=== PATIENT | male | born 1985 | race Caucasian/White ===

== ENCOUNTER 2017-08-17 21:23 | Emergency (ER) | payer BC ==
--- NOTE | 2017-08-17 21:52 | ED Physician Chart ---
ED Chief Complaint/HPI - Patient Information Date Seen:: 08/17/17 Time Seen:: 21:48 Chief Complaint:: Left chest rib pain History of Present Illness:: 32 yo male left chest rib pain for 2 days. Nausea and vomited once today. Deep breath worsened the pain, movement of chest worsened the pain to 10/10. No SOB Allergies:: Allergies Allergy/AdvReac Type Severity Reaction Status Date / Time No Known Allergies Allergy Verified 08/17/17 21:35 Vitals:: Vital Signs - 8 hr 08/17/17 21:29 Temp 98.0 F HR 70 RR 18 BP 126/80 O2 Sat % 98 ED Review of Systems - Review of Systems General/Constitutional: No fever Head: No headache ED Past Medical History - Past Medical History Past Medical History: No significant medical hx Social History: Smoker, No Alcohol, No Drug Use Surgical History: None Family Medical History - Family Member Mother Ethnicity: Living Status: Still Living ED Septic Shock - <6hrs of presentation: Vital Signs: Vital Signs - 8 hr 08/17/17 21:29 Temp 98.0 F HR 70 RR 18 BP 126/80 O2 Sat % 98
[2017-08-17 22:10] LABS: % BASOPHILS 0.3 % (0.0-2.0); % EOSINOPHILS 1.5 % (0.0-5.0); % LYMPHOCYTES 24.4 % (20.0-50.0); % MONOCYTES 5.9 % (2.0-10.0); % NEUTROPHILS 67.9 % (40.0-80.0); EOSINOPHILE ABSOLUTE 0.1 Th/cmm (0.1-0.4); HEMATOCRIT 38.8 % (41.0-60); HEMOGLOBIN 13.6 gm/dL (12-16); LYMPHOCYTE ABSOLUTE 1.7 Th/cmm (1.5-3.0); MEAN CELL VOLUME 90.8 fl (80-99); MEAN CORPUSCULAR HEMOGLOBIN 31.9 pg (26.0-30.0); MEAN CORPUSCULAR HGB CONC 35.1 pg (28.0-36.0); MEAN PLATELET VOLUME 8.3 fl; MONOCYTE ABSOLUTE 0.4 Th/cmm (0.3-1.0); NEUTROPHILE ABSOLUTE 4.9 Th/cmm (1.8-8.0); PLATELET COUNT 208 Th/cmm (150-400); RED BLOOD COUNT 4.28 Mil/cmm (4.30-5.70); RED CELL DISTRIBUTION WIDTH 11.6 % (11.5-20.0); WHITE BLOOD COUNT 7.1 Th/cmm (4.8-10.8)
[2017-08-17 22:13] LABS: URINE MICROSCOPIC INDICATED? YES; URINE SOURCE RANDOM
[2017-08-17 22:18] LABS: URINE BILIRUBIN NEGATIVE (NEGATIVE); URINE BLOOD NEGATIVE (NEGATIVE); URINE GLUCOSE (UA) NEGATIVE (NEGATIVE); URINE KETONE NEGATIVE (NEGATIVE); URINE LEUKOCYTE ESTERASE NEGATIVE (NEGATIVE); URINE NITRATE NEGATIVE (NEGATIVE); URINE PROTEIN NEGATIVE (NEGATIVE); URINE UROBILINOGEN 0.2 E.U./dL (0.2 - 1.0)
[2017-08-17 22:21] LABS: URINE BACTERIA NONE SEEN /hpf (NONE SEEN); URINE CLARITY CLEAR (CLEAR); URINE COLOR YELLOW; URINE EPITHELIAL CELLS NONE SEEN /lpf (FEW); URINE RBC NONE SEEN /hpf (0-5); URINE WBC NONE SEEN /hpf (0-5)
[2017-08-17 22:29] LABS: ALB/GLOB RATIO 2.2 (1.0-1.8); ALBUMIN 4.4 gm/dL (4.2-5.5); ALKALINE PHOSPHATASE 36 U/L (34-104); ANION GAP 8.9 (7.0-16.0); BILIRUBIN,TOTAL 0.5 mg/dL (0.3-1.0); BUN - UREA NITROGEN 18 mg/dL (7-25); CALCIUM SERUM 9.3 mg/dL (8.6-10.3); CARBON DIOXIDE 25.6 mEq/L (21.0-31.0); CHLORIDE 104 mEq/L (98-107); GFR AFRICAN-AMERICAN > 60.0 ml/min (>90); GFR NON AFRICAN-AMERICAN > 60.0 ml/min; GLUCOSE 116 mg/dL (70-105); POTASSIUM SERUM 3.5 mEq/L (3.5-5.1); SGOT 18 U/L (13-39); SGPT/ALT 11 U/L (7-52); SODIUM SERUM 135 mEq/L (136-145); TOTAL PROTEIN,SERUM 6.4 gm/dL (6.0-8.3)
[2017-08-17 23:15] LABS: DDIMER QUANT < 100 ng/mL (100-400)
--- NOTE | 2017-08-18 08:48 | Diagnostic Imaging Report ---
CT Chest without IV contrast HISTORY: Left-sided chest pain COMPARISON: None. Technique: Axial images were obtained from the base of the neck to the upper abdomen without IV contrast. Reconstructions were made. Total DLP to 88, CTD I 7.2 Findings: Evaluation of the mediastinum is limited due to lack of IV contrast. There appears to be remnant thymic tissue along the prevascular space. No evidence of mediastinal lymphadenopathy. The heart size is normal. There is punctate atherosclerotic focus of the aortic arch. No evidence of pericardial effusion. No evidence of an acute aneurysm. Evaluation of the lung demonstrates hypoventilatory and atelectatic changes primarily involving the lower lung zones. No focal consolidation or pleural effusions. The Upper abdomen demonstrates mildly distended stomach. Small hiatal hernia noted. The osseous structures demonstrate no acute abnormalities. IMPRESSION: No evidence of focal consolidation or pneumothorax. Minimal punctate atherosclerotic focus of the aortic arch. Small hiatal hernia Mildly distended food -filled stomach.
== END 2017-08-18 00:30 | disposition home or self-care (01) ==
LOC: ER 21:23
DX: R07.81 Pleurodynia (principal); R11.2 Nausea with vomiting, unspecified; F17.200 Nicotine dependence, unspecified, uncomplicated
CPT/HCPCS: 36415-UA; 71250-TC; 80053-TC; 81001-TC; 84484-TC; 85025-TC; 85379-TC; 93005

== ENCOUNTER 2017-11-10 17:28 | Emergency (ER) | payer BC ==
[2017-11-10] MEDS ORDERED: Triple Antibiotic 0.94 gm Pkt TP ONE (18:28)
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
== END 2017-11-10 19:05 | disposition home or self-care (01) ==
LOC: ER 17:28
DX: S61.412A Laceration without foreign body of left hand, initial encounter (principal); X58.XXXA Exposure to other specified factors, initial encounter; Y93.89 Activity, other specified; Y92.89 Other specified places as the place of occurrence of the external cause; Y99.8 Other external cause status
CPT/HCPCS: 12001; A4217; Z7502; Z7610